=== PATIENT | male | born 1970 | race African-American/Black ===

== ENCOUNTER 2022-09-16 21:15 | Emergency (ER) | payer MEDICAID, OTHER ==
[~2022-09-16] VITALS: Ht 180.3 cm; Wt 220.0 kg
[2022-09-16 21:17] VITALS: BP 168/107
[2022-09-16] MEDS ORDERED: ACETAMINOPHEN 325MG TABLET PO ONE (22:00)
[2022-09-16] MEDS ORDERED: LIDOCAINE HCL/EPINEPHRINE 1%-EPI 1:100,000 20 ML VIAL INFIL ONE (22:30)
[2022-09-16] MEDS ORDERED: LIDOCAINE HCL/EPINEPHRINE 1%-EPI 1:100,000 10 ML VIAL INFIL NR (22:45)
[2022-09-16] MEDS ORDERED: LIDOCAINE HCL/EPINEPHRINE 1%-EPI 1:100,000 20 ML VIAL INFIL NR (23:00)
[2022-09-17] MEDS ORDERED: TOPUD PO (01:05)
[2022-09-17] MEDS ORDERED: IBUP-2028 MT (01:05)
== END 2022-09-17 01:20 | disposition home or self-care (01) ==
LOC: ER 21:15
DX: M79.602 Pain in left arm (principal)
CPT/HCPCS: 12011; 70450; 70486; 71045; 72125; 73090; 99284; J3490; Z7610